=== PATIENT | female | born 1985 | race Caucasian/White ===

== ENCOUNTER 2022-02-26 21:26 | Emergency (ER) | payer OTHER ==
[~2022-02-26] VITALS: Ht 175.3 cm; Wt 83.9 kg
[2022-02-26 21:34] VITALS: BP 151/62
--- NOTE | 2022-02-26 21:38 | NUR ---
PATIENT TO THE BATHROOM FOR URINE COLLECTION
--- NOTE | 2022-02-26 21:40 | NUR ---
PT TO LOBBY
[2022-02-27] MEDS ORDERED: NITR100C7 PO (00:04)
[2022-02-27] MEDS ORDERED: PHEN-1877 PO (00:04)
--- NOTE | 2022-02-27 00:04 | NUR ---
CALLED PT FORM INSIDE LOBBY AND OUTSIDE, NO RESPONSE
--- NOTE | 2022-02-27 00:26 | NUR ---
called for patient no answer at this time
--- NOTE | 2022-02-27 00:26 | NUR ---
PATIENT LEFT WITHOUT BEING SEEN BY DR. CASTILLO. NO FURTHER CARE PROVIDED FOR PATIENT.
== END 2022-02-26 21:40 | disposition left against medical advice (07) ==
LOC: MED 21:26
DX: R30.0 Dysuria (principal); R35.0 Frequency of micturition; R39.15 Urgency of urination; Z53.21 Procedure and treatment not carried out due to patient leaving prior to being seen by health care provider
CPT/HCPCS: 81002; 81025; 99281